=== PATIENT | female | born 1990 | race African-American/Black ===

== ENCOUNTER 2018-01-26 16:52 | Inpatient (IN) | payer OTHER ==
[2018-01-26] MEDS: LACTATED RINGER'S 1,000 ML IV (17:31)
[2018-01-26 17:52] LABS: ADD MAN DIFF? NO
[2018-01-26 17:54] LABS: WHITE BLOOD COUNT 11.3 10^3/ul (4.8-10.8)
[2018-01-26 17:54] LABS: ABNORMAL IP MESSAGE 1; BASOPHILS % 0.4 % (0.0-2.0); EOSINOPHILS # 0.1 10^3/ul (0.0-0.5); EOSINOPHILS % 0.4 % (0.0-7.0); HEMATOCRIT 33.9 % (37.0-47.0); HEMOGLOBIN 11.2 g/dl (12.0-16.0); LYMPHOCYTES # 2.9 10^3/ul (0.8-2.9); LYMPHOCYTES % 25.6 % (15.0-51.0); MEAN CORPUSCULAR HEMOGLOBIN 30.5 pg (29.0-33.0); MEAN CORPUSCULAR VOLUME 92.4 fl (82.0-101.0); MEAN PLATELET VOLUME 13.6 fl (7.4-10.4); MONOCYTE # 0.9 10^3/ul (0.3-0.9); MONOCYTES % 7.6 % (0.0-11.0); NEUTROPHIL # 7.1 10^3/ul (1.6-7.5); NEUTROPHILS % 63.3 % (39.0-77.0); NUCLEATED RED BLOOD CELLS% 0.4 /100WBC (0.0-0.0); PLATELET COUNT 171 10^3/UL (140-415); RED BLOOD COUNT 3.67 10^6/ul (4.20-5.40); RED CELL DISTRIBUTION WIDTH 14.2 % (11.5-14.5)
[2018-01-26 18:00] LABS: POSITIVE DIFF @See below
[2018-01-26] MEDS ORDERED: OXYTOCIN 30 UNITS/LR 500 ML IV ×2 (18:00→22:00)
[2018-01-26] MEDS ORDERED: MISOPROSTOL 200 MCG TAB PR ×2 (18:00→22:00)
[2018-01-26] MEDS ORDERED: LIDOCAINE 1% (MPF) 30 ML INJ INJ (18:00)
[2018-01-26] MEDS ORDERED: METHYLERGONOVINE 0.2 MG INJ IM ×2 (18:00→22:00)
[2018-01-26] MEDS ORDERED: CARBOPROST 250 MCG INJ IM ×2 (18:00→22:00)
[2018-01-26 18:13] LABS: INR 0.87; PROTIME 11.9 Sec (11.9-14.9); PT RATIO 0.9
[2018-01-26 18:14] LABS: PARTIAL THROMBOPLASTIN TIME 27.9 Sec (23.0-35.0)
[2018-01-26] MEDS ORDERED: FENTAnyl 2MCG/ML-ROPIV 0.2% 100 ML (18:15)
[2018-01-26] MEDS: AMPICILLIN 2 GM/NS (PMX) 100 ML IV (18:21)
[2018-01-26] MEDS ORDERED: NALOXONE (0.4 MG/ML) INJ IV (18:30)
[2018-01-26] MEDS ORDERED: FENTAnyl 2MCG/ML-ROPIV 0.2% 100 ML BAG EPI (18:30)
[2018-01-26] MEDS ORDERED: MINERAL OIL LIGHT 10 ML VIAL (18:46)
[2018-01-26] MEDS ORDERED: LIDOCAINE 1% (MPF) 30 ML INJ (18:49)
[2018-01-26] MEDS: MINERAL OIL LIGHT 10 ML VIAL TOP (19:50)
[2018-01-26] MEDS: OXYTOCIN 30 UNITS/LR 500 ML IV ×2 (19:52)
[2018-01-26 20:37] LABS: HEPATITIS B SURFACE ANTIGEN NEGATIVE (NEGATIVE)
[2018-01-26] MEDS ORDERED: ZOLPIDEM 5 MG TAB PO (22:00)
[2018-01-26] MEDS ORDERED: HYDROCODONE/APAP (5/325) TAB PO (22:00)
[2018-01-26] MEDS ORDERED: DIBUCAINE 1% 30 GM OINT TOP (22:00)
[2018-01-26 22:01] LABS: RAPID PLASMA REAGIN NONREACTIVE (NR)
[2018-01-26] MEDS: LACTATED RINGER'S 1,000 ML IV* (22:33)
[2018-01-26] MEDS: ACETAMINOPHEN 1000MG/100ML IV 100 ML IVPB (22:34)
[2018-01-26] MEDS: ACETAMINOPHEN 325 MG TAB PO (23:59)
[2018-01-27] MEDS: IBUPROFEN 600 MG TAB PO ×4 (00:22→17:55)
[2018-01-27] MEDS: WITCH HAZEL/GLYCERIN PAD PR (00:23)
[2018-01-27] MEDS: BENZOCAINE 20% 56 ML SPRAY TOP (00:23)
[2018-01-27] MEDS: LANOLIN 7 GM TUBE TOP (00:23)
[2018-01-27] MEDS: ACETAMINOPHEN 325 MG TAB PO ×3 (05:36→17:56)
[2018-01-27] MEDS: LACTATED RINGER'S 1,000 ML IV* ×2 (05:46→13:46)
[2018-01-27 08:22] LABS: ADD MAN DIFF? NO
[2018-01-27 08:32] LABS: ABNORMAL IP MESSAGE 1; BASOPHILS % 0.2 % (0.0-2.0); EOSINOPHILS # 0.1 10^3/ul (0.0-0.5); EOSINOPHILS % 0.8 % (0.0-7.0); HEMATOCRIT 25.9 % (37.0-47.0); HEMOGLOBIN 8.6 g/dl (12.0-16.0); LYMPHOCYTES # 2.6 10^3/ul (0.8-2.9); LYMPHOCYTES % 20.5 % (15.0-51.0); MEAN CORPUSCULAR HEMOGLOBIN 30.5 pg (29.0-33.0); MEAN CORPUSCULAR HGB CONC 33.2 g/dl (32.0-37.0); MEAN CORPUSCULAR VOLUME 91.8 fl (82.0-101.0); MEAN PLATELET VOLUME 13.2 fl (7.4-10.4); MONOCYTE # 0.8 10^3/ul (0.3-0.9); MONOCYTES % 6.5 % (0.0-11.0); NEUTROPHIL # 9.1 10^3/ul (1.6-7.5); NEUTROPHILS % 71.1 % (39.0-77.0); NUCLEATED RED BLOOD CELLS% 0.2 /100WBC (0.0-0.0); PLATELET COUNT 123 10^3/UL (140-415); RED BLOOD COUNT 2.82 10^6/ul (4.20-5.40); RED CELL DISTRIBUTION WIDTH 14.3 % (11.5-14.5)
[2018-01-27 08:32] LABS: WHITE BLOOD COUNT 12.8 10^3/ul (4.8-10.8)
[2018-01-27 08:47] LABS: POSITIVE DIFF @See below
[2018-01-27] MEDS: SENNA/DOCUSATE NA (8.6MG/50MG) TAB PO ×2 (10:00→21:02)
[2018-01-27] MEDS: MAGNESIUM HYDROXIDE 30ML CUP PO ×2 (10:00→21:02)
[2018-01-27] MEDS: HYDROCODONE/APAP (5/325) TAB PO (10:07)
[2018-01-28] MEDS: ACETAMINOPHEN 325 MG TAB PO ×3 (00:01→11:37)
[2018-01-28] MEDS: IBUPROFEN 600 MG TAB PO ×3 (00:02→11:37)
[2018-01-28] MEDS: MAGNESIUM HYDROXIDE 30ML CUP PO (08:38)
[2018-01-28] MEDS: SENNA/DOCUSATE NA (8.6MG/50MG) TAB PO (08:39)
[2018-01-28] MEDS: MEASLES,MUMPS,RUBELLA VACCINE INJ SC* (09:00)
[2018-01-28] MEDS: DIPHTH/TET/ACEL PERTUSS (ADULT) 0.5 ML VIAL IM* (09:00)
[2018-01-28] MEDS: VARICELLA VACCINE LIVE/PF 1,350 UNIT/0.5 ML ML SC* (09:00)
[2018-01-28] MEDS: WITCH HAZEL/GLYCERIN PAD PR (11:37)
== END 2018-01-28 13:40 | disposition home or self-care (01) | DRG 807 ==
LOC: OBT 16:52 → L-D 16:53 → OBT 17:20 → L-D 17:20 → PP1 20:54
PROVIDERS: Obstetrics & Gynecology
PROC: 10E0XZZ Delivery of Products of Conception, External Approach (ICD-10-PCS; principal; 2018-01-26)
PROC: 0HQ9XZZ Repair Perineum Skin, External Approach (ICD-10-PCS; 2018-01-26)
PROC: 0UQKXZZ Repair Hymen, External Approach (ICD-10-PCS; 2018-01-26)
DX: O70.0 First degree perineal laceration during delivery (principal); Z37.0 Single live birth; Z3A.38 38 weeks gestation of pregnancy
CPT/HCPCS: 62319; 85025; 85610; 85730; 86592; 86850; 86900; 86901; 87340; 90716; 99464